=== PATIENT | male | born 1975 | race Caucasian/White ===

== ENCOUNTER 2020-12-05 12:38 | Emergency (ER) | payer OTHER ==
[2020-12-05 13:34] VITALS: BP 138/93; PULSE 113; RESP 16; TEMP 98.2
[2020-12-05] MEDS ORDERED: DOXYCYCLINE 100 MG CAP PO STA (15:00)
--- NOTE | 2020-12-05 15:01 | ED ---
Skin/Abscess/FB HPI - General Chief complaint: Skin/Abscess/Foreign Body Stated complaint: Poss Tick Bites Time Seen by Provider: 12/05/20 14:49 Source: patient Mode of arrival: ambulatory Limitations: no limitations - History of Present Illness Initial comments: 45-year-old male presented emergency Department with a chief complaint of possible tick bite on his scrotum. Patient is also complaining of a small lesion near his anus. States the lesion on the anus occurred about one week ago and he has been applying warm compresses to the region. Patient states it is draining a yellow/white color. He denies any fevers or chills. Denies any painful defecation. Denies any bleeding from the region. Patient also reports the tick bite on the scrotum was not an actual tick. However, he states it was a dark spot which she believes it may be a tick but is not completely sure. States there was no actual insect in the region. - Related Data Previous Rx's Medication Instructions Recorded Amoxicillin/Potassium Clav 1 tab PO Q12HR #20 tab 12/05/20 [Augmentin 875-125 Tablet] Allergies Allergy/AdvReac Type Severity Reaction Status Date / Time No Known Allergies Allergy Verified 12/05/20 13:34 Review of Systems ROS Statement: Those systems with pertinent positive or pertinent negative responses have been documented in the HPI. ROS Other: All systems not noted in ROS Statement are negative. Past Medical History Past Medical History: No Reported History History of Any Multi-Drug Resistant Organisms: None Reported Past Surgical History: No Surgical Hx Reported Past Psychological History: No Psychological Hx Reported Smoking Status: Current every day smoker Past Alcohol Use History: Occasional Past Drug Use History: None Reported General Exam Limitations: no limitations General appearance: alert, in no apparent distress Head exam: Present: atraumatic, normocephalic, normal inspection Eye exam: Present: normal appearance, PERRL, EOMI Pupils: Present: normal accommodation ENT exam: Present: normal exam, normal oropharynx, mucous membranes moist Neck exam: Present: normal inspection, full ROM. Absent: tenderness Respiratory exam: Present: normal lung sounds bilaterally. Absent: respiratory distress Cardiovascular Exam: Present: regular rate, normal rhythm, normal heart sounds. Absent: systolic murmur Rectal exam: Absent: normal inspection (Small abscess near the anus at 7:00. It is quite small, less than 5 mm. It is ready draining a yellow discharge.), hemorrhoids exam: Present: normal inspection (Small black spot on the scrotum which does not appear to be a tick bite. Appears to crusting possibly from small abrasion. No signs of infection.). Absent: testicular tenderness, urethral discharge, scrotal swelling, vertical testicular lie Extremities exam: Present: normal inspection, full ROM, normal capillary refill. Absent: tenderness Back exam: Present: normal inspection, full ROM. Absent: tenderness Neurological exam: Present: alert, oriented X3 Psychiatric exam: Present: normal affect, normal mood Skin exam: Present: warm, dry, intact, normal color Course Vital Signs 12/05/20 13:30 Temperature 98.2 F Pulse Rate 113 H Respiratory 16 Rate Blood Pressure 138/93 O2 Sat by Pulse 99 Oximetry Medical Decision Making - Medical Decision Making 45-year-old male presents emergency Department with a chief complaint of a tick on the scrotum. On physical examination, this appears to be some crusted over from a previous abrasion on the scrotum. There is no tenderness or any signs of infection. He had a separate complaint of a lesion on his anus. Upon further examination, this appears to be a very small abscess that is a salvador draining. This appears to be a perianal abscess which I will treat with Augmentin.Incision and drainage at this time considering it is draining at the moment. Advised him to apply warm compresses. Advised him to return to emergency department if symptoms worsen. Also advised him to follow-up with the general surgeon. Case discussed with physician Disposition Clinical Impression: Abscess Disposition: HOME SELF-CARE Condition: Stable Instructions (If sedation given, give patient instructions): Abscess (ED), Abscess Incision and Drainage (DC) Additional Instructions: Please return to the Emergency Department if symptoms worsen or any other c oncerns. Take prescribed medication as directed. Apply with multiple warm compresses per day. Prescriptions: Amoxicillin/Potassium Clav [Augmentin 875-125 Tablet] 1 tab PO Q12HR #20 tab Is patient prescribed a controlled substance at d/c from ED?: No Referrals: None,Stated [Primary Care Provider] - 1-2 days Time of Disposition: 15:01
== END 2020-12-05 15:10 | disposition home or self-care (01) ==
LOC: EC 12:38
DX: K61.0 Anal abscess (principal); S30.813A Abrasion of scrotum and testes, initial encounter; F17.200 Nicotine dependence, unspecified, uncomplicated; W57.XXXA Bitten or stung by nonvenomous insect and other nonvenomous arthropods, initial encounter
CPT/HCPCS: 99282

== ENCOUNTER 2022-02-24 14:57 | Emergency (ER) | payer OTHER ==
[2022-02-24 15:15] VITALS: BP 163/90; PULSE 115; RESP 20; TEMP 98.2
--- NOTE | 2022-02-24 18:07 | ED ---
General Adult HPI - General Chief complaint: Skin/Abscess/Foreign Body Stated complaint: poss parasite Time Seen by Provider: 02/24/22 17:42 Source: patient Mode of arrival: ambulatory Limitations: no limitations - History of Present Illness Initial comments: Patient is a 46-year-old male who presents to the emergency department for evaluation of rash. Patient states rash developed one week ago and has been getting worse. Patient states he has not had sexual intercourse in 8 years therefore he is not concerned with a sexually transmitted infection. States the rash is not painful or itchy. States he was camping a couple weeks ago and a friend he was camping with also has the rash. No new skin products or soaps. Denies fever, chills, upper respiratory symptoms, penile discharge, burning with urination, blood in the urine. - Related Data Previous Rx's Medication Instructions Recorded Amoxicillin/Potassium Clav 1 tab PO Q12HR #20 tab 12/05/20 [Augmentin 875-125 Tablet] Allergies Allergy/AdvReac Type Severity Reaction Status Date / Time No Known Allergies Allergy Verified 02/24/22 15:14 Review of Systems ROS Statement: Those systems with pertinent positive or pertinent negative responses have been documented in the HPI. ROS Other: All systems not noted in ROS Statement are negative. Past Medical History Past Medical History: No Reported History History of Any Multi-Drug Resistant Organisms: None Reported Past Surgical History: No Surgical Hx Reported Past Psychological History: No Psychological Hx Reported Smoking Status: Current every day smoker Past Alcohol Use History: Occasional Past Drug Use History: None Reported General Exam Limitations: no limitations General appearance: alert, in no apparent distress Head exam: Present: atraumatic, normocephalic, normal inspection Respiratory exam: Present: normal lung sounds bilaterally. Absent: respiratory distress, wheezes, rales, rhonchi, stridor Cardiovascular Exam: Present: regular rate, normal rhythm, normal heart sounds. Absent: systolic murmur, diastolic murmur, rubs, gallop, clicks Neurological exam: Present: alert, oriented X3, CN II-XII intact Psychiatric exam: Present: normal affect, normal mood Skin exam: Present: warm, dry, intact, normal color, rash (pustules and vesicles over right groin approximatey 5 by 4 cm. Not painful with palption ) Course Vital Signs 02/24/22 15:13 Temperature 98.2 F Pulse Rate 115 H Respiratory 20 Rate Blood Pressure 163/90 O2 Sat by Pulse 100 Oximetry Medical Decision Making - Medical Decision Making This is a 46-year-old male who presents for evaluation of rash. There are pustules and vesicles over right groin approximatey 5 by 4 cm. There is no tenderness with palpation. STI and monkeypox testing was initially ordered however patient declined all testing. States his friend poured bleach on the rash which made it go away. I highly encouraged patient not to do this. Rash hygiene discussed. Patient to follow-up with primary care provider. Dr. Lugo is my attending. Disposition Clinical Impression: Rash Disposition: HOME SELF-CARE Condition: Good Instructions (If sedation given, give patient instructions): Acute Rash (ED) Additional Instructions: Please follow up with primary care provider in one to 2 days. If rash is viral, it will likely go away on its own. Avoid skin to skin contact with others while you have the rash. Wash hands frequently to prevent spread. Return to the emergency department if you experience new, concerning, or worsening symptoms. Is patient prescribed a controlled substance at d/c from ED?: No Referrals: None,Stated [Primary Care Provider] - 1-2 days Time of Disposition: 18:07
== END 2022-02-24 18:20 | disposition home or self-care (01) ==
LOC: EC 14:57
DX: R21 Rash and other nonspecific skin eruption (principal); F17.200 Nicotine dependence, unspecified, uncomplicated
CPT/HCPCS: 99282